=== PATIENT | female | born 1965 | race African-American/Black ===

== ENCOUNTER → 2018-01-28 | Day surgery (SDC) | payer OTHER ==
[~2018-01-28] VITALS: Ht 172.7 cm; Wt 79.4 kg
[~2018-01-28] MED LIST: CIPRO500 M1 PO; LO LOESTRIN FE1 EACH PO; NORCO 325 MG-51 TAB PO
--- NOTE | 2018-01-28 17:25 | Operative Report ---
Operative/Inv Procedure Report Surgery Date: 01/28/18 Name of Procedure: left ureteroscopy with laser lithotripsy, stone extraction, stent placement Pre-Operative Diagnosis: left ureteral stone Post-Operative Diagnosis: same Estimated Blood Loss: less than 50ml Surgeon/Tram Inspector: Portia Self MD Anesthesia: laryngeal mask airway Drains: 6x26cm stent Specimens: stone fragments Complications: coughing during semi-rigid ureteroscope in the midureter Condition: stable Operative Indication: left ureteral stone Operative/Procedure Note Note: This is a 52-year-old female [place] with the left ureteral stone. She had hydronephrosis behind it and had been drinking lots of water but did not pass it with conservative management. She wished to have it managed surgically. She was given the risks benefits and alternatives of shockwave lithotripsy as well as ureteroscopy with laser lithotripsy. Her daughter was graduating from college this week and so she wanted to have it treated prior to the important day. She was given the risks benefits and alternatives of the surgery in my office when she signed the consent as well as in the holding area in the presence of her mother and . All questions were answered. Patient was taken to the operating room placed on the operating table in the supine position. Timeout was performed. The patient was marked in the holding area. LMA anesthesia was begun. IV antibiotics were infused. She was placed in the dorsolithotomy position and prepped and draped in the standard sterile fashion. A cystoscopy was performed the bladder was globally inspected. There were no abnormalities trabeculation or masses. The ureteral orifices were in their normal location. A solo guidewire was placed up the ureter. A semirigid ureteroscope was then attempted to be placed up the ureter but this was not able to be done without injuring the ureter. As result, dual-lumen catheter was then used to place a second superstiff wire. The superstiff wire was clamped with a Tanya clamp. A semirigid was placed over the solo wire. Solo guidewire was then removed. As the laser machine was being set up and ready to be used the patient started coughing at this time. The semirigid was removed a bit from the mid ureter down to the lower ureter so as not to injure her vessels. No bleeding or mass and fringing on the ureter was appreciated to indicate that any injury had occurred to her aorta or iliacs. Once the patient was fully asleep as it was noted that the anesthesia machine infusing the upper pole fall was malfunctioning, surgery was resumed and the semirigid ureteroscope was traversed up the ureter and the 7 mm stone was encountered. It was very irregular in shape and brown. The 276 fiber was then used to laser the stone into smaller fragments. The stone was very hard in character. It was broken up into 4 fragments. A 0 tip basket was then used to attempt to remove the stones however they were still too large but they were quite jagged. As a result the dual- lumen catheter was then used again to place the superstiff wire up again. The 25 cm ureteral access sheath was then placed under fluoroscopic guidance first with the inner sheath only followed by the inner and outer sheath together. The inner and sheath and the superstiff wire were removed. The digital ureteroscope was then used to enter the renal pelvis under direct visualization. Each of the calyces were examined and no stones were seen. The ureteroscope was placed into the bladder as well as the cystoscope and no stones were seen in the bladder as well. The same maneuvers were performed to place the flexible ureteroscope back up into the renal pelvis. The stones were then seen in the renal pelvis. There were placed into the middle calyx and further lasered to smaller fragments. Once this was done the 0 tip basket was then used to remove the fragments sequentially. Although fragments that were able to be grasper removed and sent to pathology for stone analysis. There were tiny fragments that were unable to be grasped with the 0 tip basket that were left for the patient to pass on her own. The atrial scope along with the ureteral access sheath was removed taking care to examine the ureter on the way out and no stones were seen in the ureter. The remaining solo guidewire was then used to place a 6 x 26 cm ureteral stent using the cystoscope. It was placed without difficulty was seen to be curled in the renal pelvis and the distal portion was seen in the bladder so the wire was removed. The stent was seen to be in good position. The bladder was emptied. Patient was cleaned of the Betadine solution. Patient tolerated procedure well. Findings: 7 to possibly 9 mm ureteral stone irregular in shape and brown in color and hard in consistency Discharge Disposition: PACU
--- NOTE | 2018-01-29 17:33 | RADIOLOGY REPORT ---
EXAMINATION: CR ABDOMEN/INTRAOPERATIVE FLUOROSCOPY CLINICAL INDICATION: Left ureteroscopy in OR. COMPARISON: None TECHNIQUE/FINDINGS: Fluoroscopic equipment was dedicated to the operating room for the performance of an intraoperative procedure. Several (15) spot films were acquired and are archived in PACS. Please refer to operative notes for procedural detail. FLUOROSCOPY TIME: 29 seconds. IMPRESSION: Administrative dictation for intraoperative fluoroscopy and image archiving in PACS. Please refer to operative notes for details.
== END ==
LOC: STS 01:21
DX: N20.1 Calculus of ureter (principal); N13.30 Unspecified hydronephrosis; Z87.442 Personal history of urinary calculi; N39.3 Stress incontinence (female) (male); N95.2 Postmenopausal atrophic vaginitis
CPT/HCPCS: 74018; 81025; C2617; J0690; J2250